=== PATIENT | female | born 1985 | race Caucasian/White ===

== ENCOUNTER 2017-12-27 10:11 | Emergency (ER) | payer BC, SELFPAY ==
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
[2017-12-27] MEDS ORDERED: ACETAMINOPHEN 325 MG TABLET ONE ×2 (11:34→11:42)
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
== END 2017-12-27 11:49 | disposition home or self-care (01) ==
LOC: ER 10:11
DX: S16.1XXA Strain of muscle, fascia and tendon at neck level, initial encounter (principal); R51 Headache; V49.49XA Driver injured in collision with other motor vehicles in traffic accident, initial encounter; Z91.018 Allergy to other foods; Z98.82 Breast implant status
CPT/HCPCS: 70450; 72125; 99284